=== PATIENT | male | born 1985 | race Caucasian/White ===

== ENCOUNTER 2020-04-07 20:47 | Emergency (ER) | payer MEDICAID, OTHER, SELFPAY ==
[~2020-04-07] VITALS: Ht 177.8 cm; Wt 73.0 kg
[2020-04-07 21:26] LABS: AMPHETAMINE SCREEN, URINE Negative (Negative); BARBITURATE SCREEN, URINE Negative (Negative); BENZODIAZEPINE SCREEN, URINE Negative (Negative); CANNABINOID SCREEN, URINE Positive (Negative); COCAINE SCREEN, URINE Negative (Negative); METHADONE SCREEN, URINE Negative (Negative); OPIATE SCREEN, URINE Negative (Negative)
[2020-04-07 21:28] LABS: BASOPHILS % (AUTO) 1 % (0-1); EOSINOPHILS % (AUTO) 3 % (1-7); LYMPHOCYTES % (AUTO) 23 % (22-44); MEAN CORPUSCULAR HEMOGLOBIN 30.6 pg (27.5-34.5); MEAN CORPUSCULAR HGB CONC 34.3 g/dL (33.2-36.2); MEAN PLATELET VOLUME 6.9 fL (7.4-10.4); MONOCYTES % (AUTO) 11 % (2-9); NEUTROPHILS % (AUTO) 63 % (42-75); PLATELET COUNT 334 x10^3/uL (130-400); RED BLOOD COUNT 5.41 x10^6/uL (4.38-5.82); RED CELL DISTRIBUTION WIDTH 12.4 % (9.4-14.8)
[2020-04-07 21:35] LABS: MD NO
[2020-04-07 21:37] LABS: ALBUMIN 4.1 g/dL (3.4-5.0); ANION GAP 10 mmol/L (5-15); CALCIUM 8.4 mg/dL (8.5-10.1); CHLORIDE 112 mmol/L (98-107)
[2020-04-07 21:41] LABS: ALANINE AMINOTRANSFERASE 25 U/L (12-78); ALKALINE PHOSPHATASE 86 U/L (45-117); BILIRUBIN,TOTAL 0.4 mg/dL (0.2-1.0); CREATININE 0.97 mg/dL (0.7-1.3); TOTAL PROTEIN 7.8 g/dL (6.4-8.2)
[2020-04-07 21:42] LABS: SALICYLATE LEVEL < 1.7 mg/dL (2.8-20.0)
--- NOTE | 2020-04-07 21:55 | NUR ---
THIS PT WAS BIB LAW [employer] BECAUSE "HE WAS WORRIED ABOUT THE $3000 AMBULANCE BILL." PT WAS NOT PLACED ON LEGAL BY [employer] NOR IS [employer] INVOLVED IN HIS CASE. PT PRESENTS TO THE ER FOR SI. PT PROVIDED URINE SAMPLE UPON ARRIVAL. PT CURRENTLY TALKING ON PHONE, ROMANA. PT IN MONITORED ROOM FOR SAFETY.
[2020-04-07] MEDS ORDERED: ACETAMINOPHEN 500 MG TABLET ONE (22:09)
[2020-04-07] MEDS ORDERED: ACETAMINOPHEN 500 MG TABLET PO ONE (22:30)
--- NOTE | 2020-04-07 23:27 | NUR ---
PT WAS AMBULATORY TO BATHROOM WITH STEADY GAIT AT [facility] 2245. PT NOW LAYING IN BED, SHEETS PULLED OVER HEAD IN POSITION OF COMFORT.
[2020-04-08] MEDS ORDERED: THIAMINE 100MG TABLET ONE (01:29)
[2020-04-08] MEDS ORDERED: DIAZEPAM 5 MG TABLET ONE (01:29)
[2020-04-08] MEDS ORDERED: DIAZEPAM 5 MG TABLET PO ONE (01:30)
[2020-04-08] MEDS ORDERED: THIAMINE 100MG TABLET PO ONE (01:30)
[2020-04-08] MEDS ORDERED: SODIUM CHLORIDE 0.9% 1,000ML IVBOLUS ONE (03:00)
[2020-04-08] MEDS ORDERED: SODIUM CHLORIDE FLUSH 10ML SYR IVF ONE (03:00)
--- NOTE | 2020-04-08 04:03 | NUR ---
PT UNDER LEGAL ETOH LIMIT. ERP MADE AWARE. ERP BACK TO BEDSIDE FOR EVAL.
[2020-04-08] MEDS ORDERED: ZIPRASIDONE 20 MG INJ IM ONE ×2 (04:28→04:30)
--- NOTE | 2020-04-08 04:36 | NUR ---
THIS RN TO BEDSIDE AFTER MD MCGILL INFORMED PT THAT HE WAS BEING PLACED ON AN L2K. THIS RN EDUCATED PT WHAT L2K PROCESS GENERALLY ENTAILS, AND THAT IT IS A 72 HOUR HOLD FOR THE PATIENT'S SAFETY. PT COMPLAINT WITH CHANGING INTO GOWN AND PLACING ALL BELONGINGS SAVE GLASSES IN PT BELONGING BAG. 1 BAG PLACED IN SECUIRTY LOCKER. PT THEN BECAME VERY ANGRY, STATING "I'M NOT GOING TO STAY HERE FOR 72 HOURS." [employer] TECHNICIAN MIKAL LEWIS AT BEDSIDE TO ADDRESS PT'S CONCERNS. PT BEGAN STATING, I'VE BEEN THROUGH ALL THIS WITH PSYCH, I'VE BEEN SUICIDAL ALL MY LIFE, I'M TOO MUCH OF A PUSSY TO END MY LIFE." PT STATED "WHAT HAPPENS IF I JUST RUN OUT OF HERE RIGHT NOW." PT TOLD SECURITY WOULD BE CALLED. OT STATED "I THINK I COULD OUT RUN THEM." SECURITY CALLED AND AT BEDSIDE. PT OFFERED MEDICATION TO HELP HIM CALM DOWN. PT COMPLIANT, MEDICATED TO MAR. PT STATED "GIVE ME 10X THE DOSE, ENOUGH TO STOP MY HEART." PT IN SECURE ROOM WITH GARAGE DOORS DOWN AND IN VIEW OF SITTER. CALL LIGHT IN REACH. WILL CONTINUE TO MONITOR.
--- NOTE | 2020-04-08 07:12 | NUR ---
Report from MIKAL Pink
--- NOTE | 2020-04-08 08:15 | NUR ---
Pt resting. No needs at this time, states that he does not want breakfast. VS updated.
--- NOTE | 2020-04-08 09:30 | NUR ---
Spoke with family on the phone, update provided.
[2020-04-08 11:35] VITALS: BP 114/62
== END 2020-04-08 11:37 | disposition home or self-care (01) ==
LOC: ED 23:57
DX: R45.851 Suicidal ideations (principal); F10.20 Alcohol dependence, uncomplicated; Z72.9 Problem related to lifestyle, unspecified; Y90.0 Blood alcohol level of less than 20 mg/100 ml
CPT/HCPCS: 36415; 80053; 80299; 80307; 80320; 80329; 85025; 96360; 96372; 99285; J3486; J7030; G0480